=== PATIENT | male | born 1950 | race American Indian/Alaskan Native ===

== ENCOUNTER 2018-06-01 07:15 | Emergency (ER) | payer MEDICARE, MEDICAID ==
[~2018-06-01] VITALS: Ht 175.3 cm; Wt 94.0 kg
[2018-06-01] MEDS ORDERED: azithromycin/NS 500mg/250ml 250 ML IV ONE (07:35)
[2018-06-01] MEDS ORDERED: methylPREDNISolone sod succ 125mg/2ml vial IV ONE (07:35)
[2018-06-01] MEDS ORDERED: ipratropium 0.5 MG/2.5ML nebule IH ONE (07:35)
[2018-06-01 08:09] LABS: ALANINE AMINOTRANSFERASE 23 U/L (12-78); ALBUMIN 3.9 G/DL (3.4-5.0); ALBUMIN/GLOBULIN RATIO 1.1 (1.1-1.5); ALKALINE PHOSPHATASE 78 IU/L (46-116); ANION GAP 7 (8-16); ASPARTATE AMINO TRANSFERASE 16 U/L (10-37); BILIRUBIN,TOTAL 0.6 MG/DL (0.1-1.0); BLOOD UREA NITROGEN 16 MG/DL (7-18); BUN/CREATININE RATIO 12.3 (5.4-32.0); CHLORIDE 102 MMOL/L (99-107); GLUCOSE 161 MG/DL (70-104); POTASSIUM 3.3 MMOL/L (3.5-5.1); SODIUM 135 MMOL/L (135-145); TOTAL CARBON DIOXIDE 26.1 MMOL/L (24-32); TOTAL PROTEIN 7.5 G/DL (6.4-8.2); eGFR 55 ML/MIN
[2018-06-01 08:11] LABS: BASOPHILS % (AUTO) 0.2 % (0-1); EOSINOPHILS # (AUTO) 0.1 X10'3 (0-0.9); EOSINOPHILS % (AUTO) 0.9 % (0-6); HEMATOCRIT 42.9 % (42.0-52.0); HEMOGLOBIN 14.6 g/dl (14.0-17.9); LYMPHOCYTES # (AUTO) 1.9 X10'3 (1.1-4.8); LYMPHOCYTES % (AUTO) 21.2 % (21-51); MEAN CORPUSCULAR HEMOGLOBIN 30.3 PG (27.0-31.0); MEAN CORPUSCULAR VOLUME 89.2 FL (78-98); MEAN PLATELET VOLUME 9.9 FL (7.4-10.4); MONOCYTES # (AUTO) 0.5 X10'3 (0-0.9); MONOCYTES % (AUTO) 5.6 % (2-12); NEUTROPHILS # (AUTO) 6.5 X10'3 (1.8-7.7); NEUTROPHILS % (AUTO) 72.1 % (42-75); PLATELET COUNT 156 X10'3 (140-440); RED BLOOD COUNT 4.82 X10'6 (4.70-6.10); RED CELL DISTRIBUTION WIDTH 13.3 % (11.5-14.5)
[2018-06-01 08:16] LABS: MAGNESIUM 1.8 MG/DL (1.5-2.4)
[2018-06-01] MEDS ORDERED: ATRIN INH (09:18)
[2018-06-01] MEDS ORDERED: PRED20TA PO (09:18)
[2018-06-01] MEDS ORDERED: AZI25OT PO (09:18)
[2018-06-01 09:50] VITALS: BP 157/100
== END 2018-06-01 09:51 | disposition home or self-care (01) ==
LOC: ER 07:16
DX: J44.1 Chronic obstructive pulmonary disease with (acute) exacerbation (principal); J40 Bronchitis, not specified as acute or chronic; Z87.891 Personal history of nicotine dependence; Z88.8 Allergy status to other drugs, medicaments and biological substances
CPT/HCPCS: 36415; 71046; 80053; 83735; 83880; 84484; 85025; 93005; 94640; 94760; 96365; 96375; 99285; J0456; J2930

== ENCOUNTER 2018-08-22 08:06 | Emergency (ER) | payer MEDICARE, MEDICAID ==
[~2018-08-22] VITALS: Ht 175.3 cm; Wt 98.7 kg
[~2018-08-22 08:06] MED LIST: ATRIN INH
[2018-08-22] MEDS ORDERED: ondansetron 4mg rapidly disintigrating tab PO ONE (08:30)
[2018-08-22] MEDS ORDERED: morphine 4 MG/ML inj SYRINge IM ONE (08:30)
[2018-08-22] MEDS ORDERED: CYCL-1 PO (09:53)
[2018-08-22] MEDS ORDERED: HYDR-4353 PO (09:53)
[2018-08-22 10:03] VITALS: BP 156/68
== END 2018-08-22 10:08 | disposition home or self-care (01) ==
LOC: ER 08:06
DX: M54.5 Low back pain (principal); R11.10 Vomiting, unspecified; J44.9 Chronic obstructive pulmonary disease, unspecified; M19.90 Unspecified osteoarthritis, unspecified site; Z88.6 Allergy status to analgesic agent; Z88.8 Allergy status to other drugs, medicaments and biological substances; Z79.899 Other long term (current) drug therapy
CPT/HCPCS: 72100; 73502; 96372; 99284; J2270

== ENCOUNTER 2024-11-26 06:58 | Day surgery (SDC) | payer MEDICARE, MEDICAID ==
[2024-11-19 11:26] LABS: BASOPHILS % (AUTO) 0.3 % (0-1); EOSINOPHILS # (AUTO) 0.1 X10'3 (0-0.9); EOSINOPHILS % (AUTO) 1.1 % (0-6); LYMPHOCYTES # (AUTO) 1.5 X10'3 (1.1-4.8); LYMPHOCYTES % (AUTO) 21.2 % (21-51); MEAN CORPUSCULAR HEMOGLOBIN 29.5 PG (27.0-31.0); MEAN CORPUSCULAR HGB CONC 32.8 g/dL (33.0-36.5); MEAN CORPUSCULAR VOLUME 89.9 FL (78-98); MEAN PLATELET VOLUME 9.5 FL (7.4-10.4); MONOCYTES # (AUTO) 0.5 X10'3 (0-0.9); MONOCYTES % (AUTO) 6.6 % (2-12); NEUTROPHILS # (AUTO) 5.1 X10'3 (1.8-7.7); NEUTROPHILS % (AUTO) 70.8 % (42-75); PRE OP HEMATOCRIT 38.5 % (42.0-52.0); PRE OP HEMOGLOBIN 12.6 g/dL (14.0-17.9); PRE OP PLATELET COUNT 139 X10'3 (140-440); PRE OP WHITE BLOOD COUNT 7.2 10'3 (4.8-10.8); RED BLOOD COUNT 4.29 X10'6 (4.70-6.10); RED CELL DISTRIBUTION WIDTH 13.4 % (11.5-14.5)
[2024-11-19 14:01] LABS: ALBUMIN 3.8 G/DL (3.4-5.0); ALBUMIN/GLOBULIN RATIO 1.4 (1.1-1.5); ALKALINE PHOSPHATASE 80 IU/L (46-116); BLOOD UREA NITROGEN 12 MG/DL (7-18); BUN/CREATININE RATIO 11.2 (10.0-20.0); CALCIUM 8.9 MG/DL (8.5-10.1); CHLORIDE 108 MMOL/L (99-107); CREATININE 1.07 MG/DL (0.60-1.10); PRE OP ALT 22 U/L (30-65); PRE OP ANION GAP 7 (8-16); PRE OP AST 10 U/L (10-37); PRE OP BILIRUB, TOTAL 0.4 MG/DL (0.0-1.0); PRE OP GLUCOSE 121 MG/DL (70-104); PRE OP SODIUM 147 MMOL/L (135-145); TOTAL CARBON DIOXIDE 31.7 MMOL/L (24-32); TOTAL PROTEIN 6.6 G/DL (6.4-8.2); eGFR 68 ML/MIN
[~2024-11-26] VITALS: Ht 175.3 cm; Wt 104.3 kg
[2024-11-26] VITALS (14 sets, daily range): BP systolic 140–164; BP diastolic 76–104; PULSE 80–95; RESP 10–18; TEMP 97.4; O2SAT 93–99
[~2024-11-26 06:58] MED LIST changes: +ALPR1TAB7 PO; -ATRIN INH; +CALC-157 PO; +CHOL20003 PO; +LEVA15HF6 INH; +LISI10TA27 PO; +OMEP20CA16 PO; +PROP1DRO7 OP; +SIMV-45 PO; +THEO400T PO; +TIOT4MIS2 INH
[2024-11-26] MEDS: levalbuterol 0.63mg/3ml nebule IH PRN (08:26)
[2024-11-26] MEDS: famotidine 20mg tablet PO ONE (08:36)
[2024-11-26] MEDS: ringers solution, lacted 1,000 ML IV SCH (08:36)
[2024-11-26] MEDS ORDERED: morphine 2 MG/ML inj. syringe IV PRN (09:15)
[2024-11-26] MEDS ORDERED: labetalol 20mg/4ml (5mg/ml) syringe IV PRN (09:15)
[2024-11-26] MEDS ORDERED: morphine 4 MG/ML inj SYRINge IV PRN (09:15)
[2024-11-26] MEDS ORDERED: ondansetron/PF 4mg/2ml inj IV PRN (09:15)
[2024-11-26] MEDS ORDERED: ringers solution, lacted 1,000 ML IV SCH (09:15)
[2024-11-26] MEDS ORDERED: sevoflurane 250ml liquid IH ONE (09:16)
[2024-11-26] MEDS ORDERED: midazolam 1 mg/ML 2ml injection ONE (09:22)
[2024-11-26] MEDS ORDERED: fentaNYL/PF 50MCG/1 ML 2ML syringe ONE (09:22)
[2024-11-26] MEDS ORDERED: rocuronium 10mg/ml inj IV ONE (09:40)
[2024-11-26] MEDS ORDERED: LIDOcaine 1%/PF 5ML 10 MG/ML VIAL ONE (09:40)
[2024-11-26] MEDS ORDERED: propofol inj 20 ML IV ONE (09:40)
[2024-11-26] MEDS ORDERED: sugammadex 200mg/2ml injection IV ONE (09:54)
== END 2024-11-26 10:19 | disposition home or self-care (01) ==
LOC: PAS 06:58
PROVIDERS: ATTEND Internal Medicine Critical Care Medicine
DX: R91.8 Other nonspecific abnormal finding of lung field (principal); J43.9 Emphysema, unspecified; I10 Essential (primary) hypertension; Z79.899 Other long term (current) drug therapy; E78.5 Hyperlipidemia, unspecified; G40.909 Epilepsy, unspecified, not intractable, without status epilepticus; M19.90 Unspecified osteoarthritis, unspecified site; Z88.8 Allergy status to other drugs, medicaments and biological substances; Z87.891 Personal history of nicotine dependence; Z82.49 Family history of ischemic heart disease and other diseases of the circulatory system; Z98.890 Other specified postprocedural states
CPT/HCPCS: 31624; 31628; 31629; 31653; 36415; 71250; 80053; 82948; 85025; 87015; 87070; 87116; 87206; 88341; 88342; 93005; 94640; 94760; A4615; A4618; J1100; J2250; J2405; J2704; J3010; J3490; J7120; Z7506; Z7508; Z7512; Z7610; 31622; 31625; 31626; 31627; 31654; 88173; 88305; J7614